=== PATIENT | female | born 1985 | race African-American/Black ===

== ENCOUNTER 2017-03-01 14:59 | Emergency (ER) | payer SELFPAY ==
[~2017-03-01] VITALS: Ht 165.1 cm; Wt 98.0 kg
[2017-03-01] MEDS ORDERED: SODIUM CHLORIDE 0.9% 1,000 ML IV ONE (15:59)
[2017-03-01] MEDS ORDERED: ONDANSETRON HCL 4MG/2ML VIAL IV ONE (16:15)
[2017-03-01 16:29] LABS: BASOPHILS % 0.4 % (0.0-2.0); EOSINOPHILS % 3.8 % (0.0-5.0); HEMOGLOBIN. 13.8 g/dL (12.0-16.0); LYMPHOCYTES % 27.3 % (20.0-50.0); MEAN CORPUSCULAR HEMOGLOBIN 31.7 pg (28.0-32.0); MEAN PLATELET VOLUME 7.5 fl (7.4-10.4); MONOCYTES % 11.7 % (2.0-8.0); NEUTROPHILS % 56.8 % (40.0-76.0); PLATELET 253 x1000/uL (130-400); RED BLOOD CELL COUNT 4.35 mill/uL (4.2-5.4); RED CELL DISTRIBUTION WIDTH 12.4 % (11.6-14.6)
[2017-03-01 16:42] LABS: B-HCG QUANTITATIVE 952 mIU/mL (<3); CARBON DIOXIDE 24 mEq/L (21-32); CHLORIDE 109 mEq/L (98-107)
[2017-03-01 16:43] LABS: CLARITY URINE CLOUDY (CLEAR); COLOR URINE YELLOW (YELLOW); GLUCOSE URINE NEGATIVE (NEGATIVE); KETONES URINE TRACE (NEGATIVE); LEUKOCYTE ESTERASE URINE NEGATIVE (NEGATIVE); NITRITE URINE NEGATIVE (NEGATIVE); OCCULT BLOOD URINE NEGATIVE (NEGATIVE); PROTEIN URINE NEGATIVE (NEGATIVE); SPECIFIC GRAVITY URINE 1.028 (1.005-1.030)
[2017-03-01 19:10] VITALS: BP 120/87
== END 2017-03-01 19:20 | disposition home or self-care (01) ==
LOC: ER 15:32
DX: O20.0 Threatened abortion (principal); F17.200 Nicotine dependence, unspecified, uncomplicated; Z88.0 Allergy status to penicillin; Z3A.00 Weeks of gestation of pregnancy not specified
CPT/HCPCS: 36415; 76801; 76817; 80048; 81001; 84702; 85025; 86850; 86900; 86901; 96361; 96374; 99285; J2405; J7030; Z7610

== ENCOUNTER 2017-03-03 16:11 | Emergency (ER) | payer SELFPAY ==
[~2017-03-03] VITALS: Ht 165.1 cm; Wt 105.0 kg
[2017-03-03 16:48] VITALS: BP 123/72
== END 2017-03-03 19:20 | disposition left against medical advice (07) ==
LOC: ER 17:38
DX: Z53.21 Procedure and treatment not carried out due to patient leaving prior to being seen by health care provider (principal)

== ENCOUNTER 2018-12-29 12:13 | Emergency (ER) | payer SELFPAY ==
[~2018-12-29] VITALS: Ht 167.6 cm; Wt 91.0 kg
[2018-12-29] MEDS ORDERED: TETRACAINE 0.5% OPHTH DROPS 4ML BOTHEYE ONE (14:45)
[2018-12-29] MEDS ORDERED: AZITHROMYCIN 500 MG TABLET PO ONE (14:45)
[2018-12-29] MEDS ORDERED: CEFTRIAXONE SODIUM 250 MG/VIAL IM ONE (14:45)
[2018-12-29 16:14] LABS: CLARITY URINE CLOUDY (CLEAR); COLOR URINE YELLOW (YELLOW); KETONES URINE TRACE (NEGATIVE); LEUKOCYTE ESTERASE URINE NEGATIVE (NEGATIVE); NITRITE URINE NEGATIVE (NEGATIVE); OCCULT BLOOD URINE 1+ (NEGATIVE); PH URINE 5.5 (4.5-8.0); PROTEIN URINE NEGATIVE (NEGATIVE); SPECIFIC GRAVITY URINE 1.025 (1.005-1.030)
[2018-12-29] MEDS ORDERED: FLUORESCEIN SODIUM 1MG/STRIP BOTHEYE ONE (17:45)
[2018-12-29 17:50] VITALS: BP 136/86
[2019-01-01 04:14] LABS: CHLAMYDIA TRACHOMATIS NAA Negative (Negative); NEISSERIA GONORRHOEAE NAA Negative (Negative)
== END 2018-12-29 17:55 | disposition home or self-care (01) ==
LOC: ER 12:13
DX: Z20.2 Contact with and (suspected) exposure to infections with a predominantly sexual mode of transmission (principal); F17.210 Nicotine dependence, cigarettes, uncomplicated; Z90.89 Acquired absence of other organs; Z98.890 Other specified postprocedural states; Z88.0 Allergy status to penicillin
CPT/HCPCS: 81003; 81025; 87070; 87430; 87491; 87591; 96372; 99284; J0696

== ENCOUNTER 2020-08-14 12:59 | Emergency (ER) | payer SELFPAY ==
[~2020-08-14] VITALS: Ht 165.1 cm; Wt 92.0 kg
[2020-08-14 13:08] VITALS: BP 160/100
[2020-08-14] MEDS ORDERED: HYDR-4346 MT ×3 (13:39→15:02)
[2020-08-14] MEDS ORDERED: CLIN150C15 MT ×2 (13:39→15:02)
[2020-08-14] MEDS ORDERED: IBUP-2029 MT ×2 (13:39→15:02)
[2020-08-14] MEDS ORDERED: CLINDAMYCIN HCL 150MG CAPSULE PO SCH (18:00)
== END 2020-08-14 13:41 | disposition home or self-care (01) ==
LOC: ER 13:21
DX: K08.89 Other specified disorders of teeth and supporting structures (principal); F17.290 Nicotine dependence, other tobacco product, uncomplicated; Z98.890 Other specified postprocedural states; Z79.899 Other long term (current) drug therapy; Z88.0 Allergy status to penicillin
CPT/HCPCS: 81025; 99282; 99406